=== PATIENT | male | born 1985 | race Caucasian/White ===

== ENCOUNTER 2025-02-09 21:43 | Emergency (ER) | payer MEDICAID, SELFPAY ==
[2025-02-09 21:48] VITALS: BP 152/113; PULSE 85; RESP 18; TEMP 37.1; O2SAT 94
[2025-02-09 21:49] VITALS: BMI 30.7
--- NOTE | 2025-02-09 22:20 | PD.EDPSYCH ---
ED Psych RME/HPI General Chief Complaint: Psychiatric Symptoms Stated Complaint: PSYCHOSIS/SI Time Seen by Provider: 02/09/25 22:11 Arrival date/time: 02/09/25 21:43 RME / HPI RME / HPI Narrative: This section includes all my notes and documentations, including HPI, PE, and ED course. Campos Gillette MD HPI: 39 y/o male with Hx of Heroin, Fentanyl, and Methamphetamine use and Manic Depression here with mom requesting psychiatric evaluation/treatment. Patient was diagnosed with Manic Depression approximately 3.5 years ago while incarcerated. Was given lithium and risperidone and Zyprexa, currently not taking them. Mom reports girlfriend left patient 3-4 months ago. And his mental state has been worse. Mom reports he has been severely worse in the past few days. Not sleeping. Not able to have conversations due to possible flight of ideas. He reports having thoughts of hurting himself, doesn't give details. No thoughts of hurting others. Uncertain about hallucinations, his answers are difficult to understand. Mom is hoping for inpatient psychiatric unit help. No other complaints. ROS: All negative except as documented in HPI. Physical Exam: General: Alert and oriented. Mood appears irritable and expansive with abnormally increased energy. Appears to have racing thoughts with nonstop talkativeness. High BP noted. Eyes: Conjunctivae and lids clear. EOMI. PERRL. ENT: No nasal congestion. Neck: Supple. No carotid bruit. No JVD. Heart: RRR. Lungs: No respiratory distress. Good air movement. No rhonchi, wheezing, rales. Abdomen: Soft and nontender. Legs: No clubbing, cyanosis, edema. Skin: Warm and dry. Neuro: Alert and oriented X 3. Cranial Nerves II-XII grossly intact. No peripheral motor deficits. I reviewed all diagnostic test results. Blood tests remarkable for serum alcohol 192.6. UDS positive for fentanyl and methamphetamine. At this point, possible diagnoses include acute psychosis, acute huang, alcohol intoxication, methamphetamine intoxication, and fentanyl use. Treatment here included Catapres, Bendryl, Nicotine patch, and Xanax. Waiting for evaluation by our ED field care coordinator. At 6 AM on 02/10/2025, the care of the patient was transferred to Dr Saleh. Campos Gillette MD Related Data Home Medications ?Medication ?Instructions ?Recorded ?Confirmed lithium carbonate 300 mg capsule 300 mg PO QDAY 09/26/21 09/26/21 olanzapine 10 mg tablet 10 mg PO QDAY 09/26/21 09/26/21 Allergies Allergy/AdvReac Type Severity Reaction Status Date / Time No Known Allergies Allergy Verified 01/05/22 16:29 Review of Systems Review of Systems Systems Reviewed: All systems reviewed, normal except as documented Past Medical History Past Medical History CARDIAC: Positive Hypertension PSYCHO/SOCIAL: Positive Depression (Manic Depression) Surgical History SURGICAL: Positive Abdominal Surgery Social History SMOKING STATUS: Current some day smoker SUBSTANCE USE: heroin, methamphetamine and other (fentanyl) ALCOHOL: Current ALCOHOL LAST INTAKE: Hours (ago) (12) ED Exam Narrative Physical exam: Refer to HPI above Course Quality Measures none Orders Category Date Time Status Referral Psych Eval Stat Cons 02/09/25 22:21 Active Acetaminophen Stat Lab 02/09/25 22:31 Completed Alcohol, Blood Medical Stat Lab 02/09/25 22:31 Completed Bilirubin,Direct Stat Lab 02/09/25 22:31 Completed CBC Stat Lab 02/09/25 22:31 Completed CMP [Comprehensive Metabolic Panel] Stat Lab 02/09/25 22:31 Completed Drug Screen,Urine Stat Lab 02/09/25 23:20 Completed Free T4 (Free Thyroxine) Stat Lab 02/09/25 22:31 Completed Magnesium Stat Lab 02/09/25 22:31 Completed Salicylate Stat Lab 02/09/25 22:31 Completed TSH [Thyroid Stimulating Hormone] Stat Lab 02/09/25 22:31 Completed ALPRazoLAM [Xanax] Med 02/10/25 02:05 Discontinued 1.5 mg PO X1 ONE DiphenhydrAMINE [Benadryl] Med 02/09/25 22:22 Discontinued 50 mg PO X1 ONE Nicotine Patch [Nicoderm Patch] Med 02/09/25 23:14 Discontinued 21 mg TOP X1 ONE cloNIDine HCL [Catapres] Med 02/09/25 22:20 Discontinued 0.2 mg PO X1 ONE Vital Signs Vital signs: Vital Signs Temperature 98.8 F 02/09/25 21:48 Pulse Rate 85 02/09/25 21:48 Respiratory Rate 18 02/09/25 21:48 Blood Pressure 152/113 H 02/09/25 21:48 Pulse Oximetry (%) 94 L 02/09/25 21:48 Oxygen Delivery Method Room Air 02/09/25 21:48 Psych MDM Narrative MDM Narrative:: Scribe Attestation: I, Courtneyibrahima Blunt, am scribing for and in the presence of Dr. Gillette. Provider Notation: Although this document has been carefully reviewed, there may still be some phonetic and other typographical errors.? These errors are purely grammatical due to imperfections in the software program and should not be construed in any way to? compromise the substance of the patient's medical care during this visit. 39 y/o male with Hx of Heroin, Fentanyl, and Methamphetamine use, and Manic Depression presents to ED c/o psychotic behavior x 1 month. Patient was diagnosed with Manic Depression approximately 3.5 years ago while incarcerated. Mother reports girlfriend left patient 3-4 months ago sending him into a spiral, where patient behaves irrationally, cannot walk straight, cannot sleep, loss of time and place, and is unable to follow through at his jobs. Patient has been off his medication for 2-3 weeks now. Denies HI, or any auditory or visual hallucinations. Patient states that he is only here to keep his mother happy. Patient admits to alcohol and drug use as recent as today. Patient has been treated with Resperdal, Methadone, Valium, and Klonopin with no relief. Patient has also undergone in-patient psychiatric treatment due to Heroin use, but was unsuccessful once he was released. Patient data External records reviewed:: [facility] previous records (No recent ED records available for review.) Clinical information provided by:: patient and parent (Mother) Social determinants that could affect healthcare access:: substance use (Methamphetamine, Fentanyl, Heroin.) Patient has the following chronic illnesses:: HTN How is presenting disease/condition affected by chronic disease/condition?: uneffected by Evaluation data The following diagnostics were reviewed and interpreted by me:: lab results Lab and/or radiology exams considered but not ordered:: None Interpretation Summary: I reviewed all diagnostic test results. Blood tests remarkable for serum alcohol 192.6. UDS positive for fentanyl and methamphetamine. Medications / Prescriptions Medications or Prescriptions considered but not ordered:: None Medication administrations:: Medication Administration History Discontinued Medications Alprazolam (Alprazolam 0.25 Mg Tablet) 1.5 mg PO X1 ONE Stop: 02/10/25 02:06 Last Admin: 02/10/25 02:18 Dose: 1.5 mg Documented By: EE Clonidine (Clonidine Hcl 0.1 Mg Tablet) 0.2 mg PO X1 ONE Stop: 02/09/25 22:21 Last Admin: 02/09/25 23:26 Dose: 0.2 mg Documented By: EE Diphenhydramine HCl (Diphenhydramine 25 Mg Capsule) 50 mg PO X1 ONE Stop: 02/09/25 22:23 Last Admin: 02/09/25 23:27 Dose: 50 mg Documented By: EE Nicotine (Nicotine Patch 21 Mg/24 Hr Patch.Td24) 21 mg TOP X1 ONE Stop: 02/09/25 23:15 Last Admin: 02/10/25 00:32 Dose: 21 mg Documented By: NATHAN Catapres, Benadryl, Nicotine patch, Xanax. Consultations Consultation(s) initiated? (list below): No Diagnosis Psych Differential Diagnosis: acute psychosis, chronic schizophrenia, suicidal ideation, bipolar disorder, depression, drug-induced psychotic disorder and acute anxiety Most likely diagnosis given after review of the tests above:: At this point, possible diagnoses include acute psychosis, acute huang, alcohol intoxication, methamphetamine intoxication, and fentanyl use. Admission Indicated Admission indicated?: not indicated Explain why admission is indicated or not indicated:: No psychiatric service available here. Admission Request Was there a request for admission?: No Disposition Plan Disposition Plan: other (specify) (Care of the patient was transferred to Dr Saleh.) Discharge Plan Prescriptions/Referrals Prescriptions/Med Rec: No Action olanzapine 10 mg tablet 10 mg PO QDAY Patient Comments: TAKE 1 TABLET BY MOUTH EVERY DAY IN THE EVENING lithium carbonate 300 mg capsule 300 mg PO QDAY Patient Comments: TAKE 1 CAPSULE BY MOUTH EVERY DAY IN THE EVENING Referrals: No Primary/Family,Physician [Primary Care Provider] - In 1 week Problem List Clinical Impression: Acute psychosis, Alcohol intoxication, Methamphetamine intoxication, Fentanyl dependence Patient/Caregiver Discharge Instructions Print Language: Bots[place]an
[2025-02-09 23:23] LABS: Basophils % (Auto) 0 % (0-2.5); Eosinophils # (Auto) 0.1 Thou/mm3 (0.0-0.5); Eosinophils % (Auto) 1 % (0-10); Hematocrit 39.6 % (41.0-53.0); Hemoglobin 14.2 g/dL (13.5-16.0); Immature Granulocytes % (Auto) 0 % (0-0); Immature Granulocytes Auto 0.02 Thou/mm3 (0.00-0.00); Lymphocytes # (Auto) 1.7 Thou/mm3 (1.0-4.8); Lymphocytes % (Auto) 20 % (10-50); Mean Corpuscular HGB Conc 35.9 g/dl (31.0-37.0); Mean Corpuscular Volume 84 fL (80-100); Monocytes # (Auto) 0.6 Thou/mm3 (0.0-0.8); Monocytes % (Auto) 6 % (0-12); Neutrophils # (Auto) 6.4 Thou/mm3 (1.8-7.7); Neutrophils % (Auto) 73 % (37-80); Nucleated Red Blood Cell % 0 /100 WBC (0); Platelet Count 217 Thou/mm3 (140-440); RDW Standard Deviation 39.1 fL (35.1-43.9); Red Blood Count 4.73 Miln/mm3 (4.50-5.90); White Blood Count 8.7 Thou/mm3 (3.8-10.6)
[2025-02-09 23:24] LABS: Anion Gap 12 (7-16); Blood Urea Nitrogen 10 mg/dL (9-23); Carbon Dioxide 24.4 mMol/L (20.0-31.0); Chloride 111 mMol/L (98-107); Creatinine (Component) 0.9 mg/dL (0.6-1.3); Potassium 3.4 mMol/L (3.4-5.1); Sodium 147 mMol/L (136-145)
[2025-02-09 23:25] LABS: Acetaminophen < 2.0 mcg/mL (10.0-20.0); Alanine Aminotransferase 47 U/L (10-49); Albumin, Serum 4.2 gm/dL (3.5-5.0); Albumin/Globulin Ratio 1.5 (1.2-2.2); Alcohol, Blood Medical 192.6 mg/dL (0-10.0); Alkaline Phosphatase 73 U/L (46-116); Aspartate Amino Transferase 72 U/L (0-34); BUN/Creatinine Ratio 11 Ratio (12-20); Bilirubin,Direct 0.1 mg/dL (0.0-0.3); Bilirubin,Total 0.3 mg/dL (0.3-1.2); Calcium 8.7 mg/dL (8.3-10.6); Calcium (Corrected) 8.7 mg/dL (8.5-10.1); Estimated Creatinine Clearance 132.6 mL/min (>60); Free T4 (Free Thyroxine) 1.23 ng/dL (0.89-1.76); Globulin 2.8 gm/dL (2.3-3.5); Glucose 106 mg/dL (74-106); Magnesium 2.1 mg/dL (1.6-2.6); Osmolality,Calculated 291 (275-295); Salicylate < 3.0 mg/dL; Thyroid Stimulating Hormone 1.65 uIU/mL (0.55-4.78); eGFR > 60 See Note
[2025-02-09 23:26] VITALS: BP 147/75; PULSE 89
[2025-02-09] MEDS: cloNIDine HCL 0.1 MG TABLET 0.2 MG PO (23:26)
[2025-02-09] MEDS: DiphenhydrAMINE 25 MG CAPSULE 50 MG PO (23:27)
[2025-02-10] LABS: Amphetamine/Methamp Scrn,U Positive (Negative); Barbiturate Screen,Urine Negative (Negative); Benzodiazepines Screen,Urine Negative (Negative); Benzoylecgonine Screen, Ur Negative (Negative); Fentanyl Screen,Urine Positive (Negative); Opiate Screen,Urine Negative (Negative); THC Screen,Urine Negative (Negative)
[2025-02-10] MEDS: NICOTINE PATCH 21 MG/24 HR PATCH.TD24 TOP (00:32)
[2025-02-10 01:48] VITALS: BP 143/91; PULSE 72; RESP 18; TEMP 37.3; O2SAT 95
[2025-02-10] MEDS: ALPRazoLAM 0.25 MG TABLET 1.5 MG PO (02:18)
--- NOTE | 2025-02-10 03:50 | PC.NURSE ---
Patient is very agitated pacing in and out of room stating, I just want to get the hell out of here I need medication I am coming off fentanyl use. Patient was informed that he needed to remain in the room and the provider would be notified of his request. Patient continue to pace in and out of the room becoming more agitated with staff. Patient was very restless and pulling off all the cardiac leads from chest and refused to keep the equipment to monitor his vital. Dr. Gillette was notifed and will place orders for patient to help him with his anxiety.
[2025-02-10] MEDS: SODIUM CHLORIDE 0.9% 1000 ML 1,000 ML 999 ML IV (03:55)
[2025-02-10] MEDS: fentaNYL CIT INJ 50 mCg/ML AMP 2ML IVP (03:56)
[2025-02-10] MEDS: ONDANSETRON INJ 2 MG/ML INJ 2 ML 4 MG IVP (03:56)
[2025-02-10] MEDS: DiphenhydrAMINE INJ 50 MG/ML VIAL IVP (03:57)
[2025-02-10 04:00] VITALS: BP 125/90; PULSE 78; RESP 18; TEMP 36.7; O2SAT 97
--- NOTE | 2025-02-10 06:23 | PD.EDADDENDU ---
Emergency Room Addendum <Toribio Saleh MD - Last Filed: 02/10/25 06:23> Addendum Narrative: 0600: Care assumed by previous shift provider. Past medical, surgical, social and family history reviewed. Vitals and home medications reviewed. Results and treatment plan discussed. I will assume the care of the patient at this time and will follow the patient, pending final disposition. <Shamika Norris - Last Filed: 02/10/25 12:19> Addendum Narrative: 0600: Care assumed by previous shift provider. Past medical, surgical, social and family history reviewed. Vitals and home medications reviewed. Results and treatment plan discussed. I will assume the care of the patient at this time and will follow the patient, pending final disposition. 0950: The social security benefits interviewer met with the patient and the patient?s mother. A safety plan was developed and agreed upon. The patient and mother were advised that any break in the safety contract should prompt an immediate return to the ED for potential placement. Patient was provided with referral information to the [facility], which accepts walk-ins for medication management, psychiatric evaluation, and therapy services. Additional mental health resources were also provided by the social security benefits interviewer. Patient?s mother requested a refill of Zyprexa and a 2 week supply was sent to the pharmacy. Patient was discharged in stable condition.
[2025-02-10 06:32] VITALS: BP 137/69; PULSE 79; RESP 18; TEMP 37.1; O2SAT 98
--- NOTE | 2025-02-10 09:54 | PC.CC ---
Pt Raghavendra Cr is a 39-year-old male brought in to ED by mother voluntary. Hand Heel Seat Fitter met with pt to complete mental health assessment. Pt presents disheveled and took several prompts to have Pt engaged and sit up on gurney. Pt have difficulty making direct eye contact as encounter progressed. Pt is noted to be alert and oriented to person, current place and year. Pt reports hx of mental health and reports being prescribed MH medications. Pt reports is noncompliant with medication due to the medication not having any affect. Pt denies previous 5150 holds. Pt placed in ED 9. Pt reports living with mother Digna Cr [phone] [place] [address]. ED Machine Repairman encountered Pt for mental health evaluation. ED Machine Repairman explained limits of confidentiality and Pt stated he understood. ED Machine Repairman used the following interventions: empathy, unconditional positive regard, Socratic dialogue including clarifying and probing questions. Pt was receptive and was able to disclosed having a difficult time with substance abuse and had recent relapse after usp girlfriend and Pt ended relationship. ED Machine Repairman used C-SSRS to support process and assessed for SI/HI, self-harming behaviors, method, access to lethal means, plan/intent. Pt was responsive to mental health evaluation and denied plan/intent for SI/HI. Pt denied hx of non-suicidal self-injury. Pt denied audio/visual hallucinations. Pt states he does not want to and just wants to get better and return to work. ED Machine Repairman engaged mother in open ended conversation, mother reported Pt has held two jobs and has been able to continue to be responsible with attending work but has seen a decline in Pt hygiene since his relationship ended. Mother reports Pt is connected to MH and will support Pt with being MH medication complaint and attending MH appointments. Mother reported she is willing and wanting to safety plan and will be able to monitor Pt and is willing to return Pt to ER is safety plan is not upheld. Hand Heel Seat Fitter consulted with roving department supervisor MM and it was agreed to safety plan with Pt due to client denying SI/HI with no plan/intent and Pt and mother willing and wanting to safety plan. Pt was engaged and assessed as reliable in participation in safety planning and was in agreement. Hand Heel Seat Fitter provided Pt and mother with MH and substance abuse resources.
[2025-02-10 10:17] VITALS: BP 138/90; PULSE 64; RESP 18; TEMP 37.2; O2SAT 100
[2025-02-10 10:20] VITALS: BP 138/90; PULSE 59; RESP 18; TEMP 37.2; O2SAT 100
== END 2025-02-10 10:21 | disposition home or self-care (01) ==
PROVIDERS: Emergency Medicine; Emergency Provider Emergency Medicine
DX: F23 Brief psychotic disorder (principal); F31.9 Bipolar disorder, unspecified; F15.129 Other stimulant abuse with intoxication, unspecified; F11.20 Opioid dependence, uncomplicated; F10.129 Alcohol abuse with intoxication, unspecified; Y90.9 Presence of alcohol in blood, level not specified
CPT/HCPCS: 36415; 80053; 80307; 80320; 80329; 82248; 83735; 84439; 84443; 85025; 96127; 96361; 96374; 96375; 99284; J1200; J2405; J3010; J7030; A9270; G0480